=== PATIENT | female | born 1985 | race Caucasian/White ===

== ENCOUNTER 2023-07-16 21:27 | Emergency (ER) | payer OTHER ==
[~2023-07-16] VITALS: Ht 175.3 cm; Wt 70.3 kg
[2023-07-16 21:47] VITALS: BP 128/90; PULSE 94; RESP 17; TEMP 98.2; O2SAT 99
[2023-07-16] MEDS ORDERED: ONDANSETRON 4 MG/2 ML VIAL IVP ONE (22:45)
[2023-07-16] MEDS ORDERED: MORPHINE SULFATE 4 MG/ML SYR IVP ONE (22:45)
[2023-07-16 22:57] LABS: BASOPHILS # (AUTO) 0.1 K/uL (0.00-0.22); BASOPHILS % (AUTO) 0.5 % (0.0-2.0); EOSINOPHILS # (AUTO) 0.1 K/uL (0-0.4); EOSINOPHILS % (AUTO) 1.3 % (0.0-4.0); HEMATOCRIT 35.9 % (36-48); LYMPHOCYTES # (AUTO) 3.7 K/uL (2.5-16.5); LYMPHOCYTES % (AUTO) 32.8 % (20.5-51.1); MEAN CORPUSCULAR HEMOGLOBIN 30 pg (27-31); MEAN CORPUSCULAR HGB CONC 34 g/dL (33-37); MONOCYTES # (AUTO) 0.8 K/uL (0.8-1.0); MONOCYTES % (AUTO) 6.7 % (1.7-9.3); NEUTROPHILS # (AUTO) 6.6 K/uL (1.8-7.7); NEUTROPHILS % (AUTO) 58.7 % (42.2-75.2); PLATELET COUNT (AUTO) 266 K/uL (140-450); RED BLOOD CELL COUNT(AUTO) 4.04 MIL/uL (4.20-5.40); RED CELL DISTRIBUTION WIDTH 13.1 % (11.6-13.7); WHITE BLOOD COUNT (AUTO) 11.3 K/uL (4.8-10.8)
[2023-07-16 23:01] LABS: APPEARANCE,URINE CLEAR (CLEAR); BILIRUBIN,URINE NEGATIVE (NEGATIVE); BLOOD, URINE TRACE-I (NEGATIVE); COLOR,URINE YELLOW (YELLOW); LEUKOCYTE ESTERASE ,URINE 3+ (NEGATIVE); NITRITE, URINE POSITIVE (NEGATIVE); PROTEIN,URINE TRACE (NEGATIVE); UGLUCOSE NEGATIVE (NEGATIVE); UROBILINOGEN,URINE 0.2 EU/dL (0.2 - 1)
[2023-07-16 23:06] LABS: BACTERIA,URINE >30 (MANY) /HPF (None Seen); MUCUS,URINE 1+ /LPF (None Seen); RBC,URINE 0-5 /HPF (0-5); SQUAMOUS EPITHELIAL CELL,UR 0-3 (FEW) /LPF (0-3 (FEW)); WBC,URINE TOO MANY TO COUNT /HPF (0-5)
[2023-07-16 23:13] LABS: ALBUMIN 4.2 g/dL (3.4-5.0); ANION GAP 12.8 (8-16); CALCIUM 9.1 mg/dL (8.5-10.1); CARBON DIOXIDE 26.3 mmol/L (21-32); CREATININE 0.9 mg/dL (0.6-1.3); POTASSIUM 3.1 mmol/L (3.5-5.1); TOTAL BILIRUBIN 0.5 mg/dL (0.0-1.0); TOTAL PROTEIN, SERUM 7.3 g/dL (6.4-8.2)
[2023-07-17] MEDS ORDERED: POTASSIUM CHLORIDE 10 MEQ TABER PO ONE (00:10)
[2023-07-17] MEDS ORDERED: MORPHINE SULFATE 2 MG/ML SYR IVP STA (00:47)
[2023-07-17] MEDS ORDERED: KETOROLAC 30 MG/ML VIAL IVP ONE (00:50)
[2023-07-17] MEDS ORDERED: LEVOFLOXACIN 500 MG/D5W PREMIX 100 ML IV ONE (00:50)
[2023-07-17] MEDS ORDERED: METR-435 PO (01:40)
[2023-07-17] MEDS ORDERED: NAPR-54 PO (01:40)
[2023-07-17] MEDS ORDERED: CIPR500T4 PO (01:40)
[2023-07-17] MEDS ORDERED: ACET-8905 PO (01:40)
[2023-07-17 02:20] VITALS: BP 134/78; PULSE 68; RESP 14; O2SAT 99
== END 2023-07-17 02:20 | disposition home or self-care (01) ==
LOC: MED 21:27
DX: K52.9 Noninfective gastroenteritis and colitis, unspecified (principal); N39.0 Urinary tract infection, site not specified; N80.8 Other endometriosis; E87.6 Hypokalemia; Z79.899 Other long term (current) drug therapy
CPT/HCPCS: 36415; 74177; 80053; 81001; 81025; 83690; 85025; 87086; 96365; 96375; 96376; 99285; J1885; J1956; J2270; J2405; Q9967

== ENCOUNTER 2023-07-24 16:27 | Emergency (ER) | payer SELFPAY ==
[~2023-07-24] VITALS: Ht 175.3 cm; Wt 75.3 kg
[~2023-07-24 16:27] MED LIST: ACET-8905 PO; CIPR500T4 PO; METR-435 PO; NAPR-54 PO
[2023-07-24 16:53] VITALS: BP 134/82; PULSE 111; RESP 20; TEMP 98.5; O2SAT 99
[2023-07-24] MEDS ORDERED: ONDA-188 PO (17:43)
[2023-07-24] MEDS ORDERED: DICY-86 PO (17:43)
[2023-07-24] MEDS ORDERED: CEPH-588 PO (17:43)
== END 2023-07-24 17:45 | disposition home or self-care (01) ==
LOC: MED 16:27
DX: N39.0 Urinary tract infection, site not specified (principal); Z88.0 Allergy status to penicillin; Z79.899 Other long term (current) drug therapy
CPT/HCPCS: 99283